=== PATIENT | female | born 1985 | race Caucasian/White ===

== ENCOUNTER 2017-06-26 09:45 | Inpatient (IN) | payer SELFPAY ==
[2017-06-25 11:26] VITALS: BMI 36.4
[2017-06-25 12:29] LABS: Absolute Lymphocyte Count 1.82 X10^3/ul (0.83-4.51); Absolute Neutrophil Count 5.8 X10^3/uL (2.0-7.7); Eosinophil# 0.03 X10^3/uL; Eosinophils% 0.4 % (0-5); Hematocrit 38.3 % (37-47); Hemoglobin 13.2 g/dl (12.0-15.0); Lymphocyte # 1.82 X10^3/ul (4.0); Lymphocyte % 22.6 % (19-41); Mean Corp Hgb Conc 34.5 g/gl (32-36); Mean Corpuscular Hgb 32.5 pg (27.0-32.0); Mean Corpuscular Volume 94.3 fL (81-99); Mean Platelet Vol. 9.7 fl (6.2-12.0); Neutrophil # 5.81 X10^3/uL (2.7-7.7); Neutrophil % 71.9 % (47-70); Platelet Count 170 K/mm3 (150-450); RBC Distribution Width CV 12.8 % (11.6-14.6); RBC Distribution Width SD 43.6 fl (35.1-43.9); Red Blood Count 4.06 M/mm3 (4.2-5.4); White Blood Count 8.1 K/mm3 (4.4-11.0)
[2017-06-25 12:32] LABS: POSITIVE COUNT NO; POSITIVE DIFFERENTIAL NO; POSITIVE MORPHOLOGY NO
[2017-06-25 12:39] LABS: Prothrombin Time (Protime)PT. 13.1 SECONDS (11.7-14.9)
[2017-06-25 12:40] LABS: Partial Thromboplast Time 26.7 Seconds (24.1-36.2)
[2017-06-26] VITALS (18 sets, daily range): BP systolic 107–132; BP diastolic 57–76; PULSE 77–100; RESP 13–25; TEMP 36.4–36.9; O2SAT 95–100
[2017-06-26] MEDS: Lactated Ringers 1,000 ML 999 ML IV (10:10)
[2017-06-26] MEDS: Lactated Ringers 1,000 ML 150 ML IV (11:16)
[2017-06-26] MEDS: Sodium Citrate/Citric Acid 30 ML UDC PO (11:38)
[2017-06-26] MEDS: Oxytocin 30 units/NS 500 ml 30 UNITS/500 ML IV.SOLN 167 UNITS IV (12:23)
--- NOTE | 2017-06-26 12:48 | PCM.OB.CSR ---
- Problem List (1) Previous section Status: Chronic Delivery Classification: Scheduled Final EVA: 07/01/17 Final EVA Source: US <20 weeks Gestational age: 39 Weeks and 2 Days doctor who attended delivery (if requested by OB): Eugene Tello Indications: Two previous deliverys Description of Procedure: Uncomplicated low transverse section. No significant abdominal or pelvic adhesions. Delivery of a live male . Apgars 8/9. Amniotic fluid clear. Placenta appeared normal.Normal uterus, ovaries, and fallopian tubes. Amniotic Membrane Rupture Type: Artificial Amniotic Fluid Description: Clear Placenta Disposition: [facility] Drain: Thompson to straight drain Fluids Replaced: 1500cc Cord Entanglement: None Cord Vessel Description: 3 Vessels Esitmated Blood Loss (ml): 600 Infant Gender: Female (1 minute): 8 (5 minute): 9 Delayed cord clamping: Yes Pre-op Antibiotic Given: Ancef 2 grams IV x1 Pt instructed on risks of surgery: Bleeding, Infection, Injury to surrounding structure(s) including bowel and bladder Complications: None - Admit VTE Documentation VTE Present on Admission: No VTE Mechan Device Prophylaxis: SCD's VTE Pharm Prophylaxis ordered?: No
[2017-06-26] MEDS: Ketorolac 30 MG/ML Syringe IV ×2 (12:54→17:57)
--- NOTE | 2017-06-26 12:57 | DCINST_ITS ---
Discharge Diet: No Restrictions Discharge Activity: Return to Normal Activity, May Not Drive, May not drive while taking narcotic pain medications., May Shower Return to work on:: 08/23/17 May shower in (days): 0 May resume sexual activity in: 4-6 weeks Call your doctor if your incision/area has: Sudden Increased Bleeding, Increased Pain/ Swelling, Increased Redness, Foul Smelling Discharge, Swelling at the incision site Call your doctor if you observe: Fever of 101 or Higher, Inability to urinate, Inability to have a bowel movement, Using more than one pad per hour, Shortness of breath, Chest pain, Calf discomfort, Uncontrolled pain Remove Dressing in (days):: 2 Cleanse incision/area with: Soap & Water Additional Instructions: If you experience any of the following, contact your healthcare provider. * Bleeding that soaks a pad every hour for 2 hours * Fever 100.4 or higher * Unrelieved incision or abdominal pain * Swelling, redness, discharge or bleeding from your incision or episiotomy site * Your incision begins to separate * Problems urinating (including inability to urinate or burning while urinating) . * Visual changes * Severe headache * Flu-like symptoms * Pain or redness in one of both of your breasts * Pain, warmth, tenderness or swelling in your legs, especially the calf area * Frequent nausea and vomiting * Symptoms of depression or anxiety If you experience any of the following, call 911 or go to the nearest Emergency Room. * Chest pain * Problems breathing * Seizure activity * Partial or complete paralysis of a body part, slurred speech, weakness or drooping of the face, or a sudden inability to walk or hold your balance Allergies/Adverse Reactions: Allergies No Known Allergies Allergy (Verified 03/10/13 20:51) Medications to take at Discharge Vits [Prenatabs FA ] 1 tablet PO DAILY 03/10/13 Ibuprofen [Motrin] 800 mg PO TID PRN PRN #30 tab 06/26/17 Oxycodone [Oxyir] 5 - 10 mg PO Q4H PRN PRN 7 Days #28 tab 06/26/17 The following prescriptions were given: Oxycodone [Oxyir] 5 - 10 mg PO Q4H PRN PRN 7 Days #28 tab PRN Reason: Mod-Severe Pain (-02/26) Ibuprofen [Motrin] 800 mg PO TID PRN PRN #30 tab PRN Reason: pain or cramping Follow-Up: Call to make an appointment with your doctor for an incision check in 1-2 weeks. You will also need a 6 week post- follow up appointment. Please Follow Up With: Eugene Tello MD When: one week Primary Care Physician: Pito Flores MD [Primary Care Provider] - Proposed Discharge Date: 06/28/17
--- NOTE | 2017-06-26 12:57 | PCM.OPRPT ---
Problem List (1) Previous section Status: Chronic Report of Operation Date of Procedure: 06/26/17 Pre-Operative Diagnosis: Two previous deliveries Post-Operative Diagnosis: Same Surgery/Procedure Performed:: Repeat low transverse section Description of Surgical Findings:: Normal appearing uterus, ovaries, and fallopian tubes. Amniotic fluid clear. Delivery of live female from vertex presentation. Apgars 8/9. No significant abdominal or pelvic adhesions noted. senior microsoft net developer: Patsy Gillespie Type of Anesthesia:: Spinal Anesthesiologist: Jose G Collins Specimen's removed: none Drains: bateman Estimated Blood Loss (mL): 600 Fluids Replaced: 1500cc Description of Procedure: Kamini was taken to the OR with IV running. She was given two grams of Ancef IV prior to the procedure. Spinal anesthesia was introduced without complication. SHe was then prepped and draped in the supine position with a leftward displacement. A bateman catheter was then placed aseptically. SCDs were in place throughout the case. Anesthesia was checked and found to be adequate. A Pfhanneinsteil incision was then made through the previous scar. The underlying subcutaneous tissue was dissected down to the level of fascia using blunt and sharp dissection. The fascia was then incised in the midline and this incision was extended bilaterally with the Hahn scissors. The upper portion of the fascial defect was then grasped with two Etta clamps, elevated and the rectus muscles dissected off with blunt and sharp dissection. In a similar fashion the rectus muscles were dissected off the lower fascial defect. The rectus muscles were in the midline, the peritoneum identified and entered sharply. Once entered this defect was extended using blunt retraction. A bladder blade was placed. The vesicoutero peritoneum was identified and entered sharply. A bladder flap was then created. The bladder blade was replaced. The lower uterine segment was then incised in a transverse fashion. Once the cavity was entered the uterine defect was extended using blunt lateral and superior tractions. The membranes were then ruptured with clear fluid noted. The baby's head was then delivered atraumatically. The nose and mouth were suctioned. The body was delivered easily. Delayed cord clamping was employed. After cord clamping the baby was handed to the waiting nursing staff for evaluation. The placenta was delivered manually. The uterus was then exteriorized and cleared of all clots and debris. The uterine defect was repaired in two layers with 1-0 Vicryl. The posterior cul de sac and gutters were cleared of all clots and membranes. The uterus was returned to the abdomen. The uterine incision was reinspected and found to be intact. The peritoneum was then repaired with a running stitch of 2-0 Vicryl. The rectus muscles were reapproximated with 0-Vicryl in interrupted sutures. The fascia was closed with a running stitch of #1 stratofix suture. The subcutaneous tissue was repaired with 2-0 vicryl. The skin was closed with a subcuticular stitch of 4-0 Monocryl. Sponge, lap, and needle counts were correct. The patient was taken to the recovery room in stable condition. Grafts/Implants Used: none - Complications none - Admit VTE Documentation VTE Present on Admission: No VTE Mechan Device Prophylaxis: SCD's VTE Pharm Prophylaxis ordered?: No
[2017-06-26] MEDS: Lactated Ringers 1,000 ML 100 ML IV (14:40)
--- NOTE | 2017-06-26 15:20 | NURSING ---
Cherelle Care given, FF at U/-1 .Pt tolerating movement well.
[2017-06-26] MEDS: 0.9% Saline Lock 10 ML Syringe IV (17:57)
[2017-06-26] MEDS: Cefazolin 1 GM/50 ML BAG IV (19:52)
[2017-06-27] VITALS (12 sets, daily range): BP systolic 106–126; BP diastolic 58–68; PULSE 76–106; RESP 16–20; TEMP 36.6–36.9; O2SAT 96–98
[2017-06-27] MEDS: Ketorolac 30 MG/ML Syringe IV ×4 (00:11→17:57)
[2017-06-27] MEDS: Lactated Ringers 1,000 ML 100 ML IV (00:15)
[2017-06-27] MEDS: Cefazolin 1 GM/50 ML BAG IV (03:29)
[2017-06-27 04:31] LABS: Hematocrit 32.4 % (37-47); Hemoglobin 11.2 g/dl (12.0-15.0); Mean Corp Hgb Conc 34.6 g/gl (32-36); Mean Corpuscular Hgb 32.9 pg (27.0-32.0); Mean Corpuscular Volume 95.3 fL (81-99); Mean Platelet Vol. 9.2 fl (6.2-12.0); Platelet Count 151 K/mm3 (150-450); RBC Distribution Width CV 12.6 % (11.6-14.6); RBC Distribution Width SD 42.3 fl (35.1-43.9); White Blood Count 10.2 K/mm3 (4.4-11.0)
[2017-06-27 04:35] LABS: Scan Indicated on CBC? Y/N NO
--- NOTE | 2017-06-27 07:39 | PCM.PN.OB ---
Subjective: Comfortable. No complaints of pain. Bleeding normal POD#1. Tolerating PO. Objective: Afeb VSS urine output adequate. Hgb appropriate for POD#1. - Physical Exam General: Alert, Oriented x3, Cooperative, No apparent distress Lungs: Clear to auscultation, Normal air movement Cardiovascular: Regular rate, Regular Rhythm Abdomen: Soft, Non Tender, Non-Distended, - - Fundus firm nontender. Incision dressing dry. Extremities: No edema, No Calf Tenderness Skin: No rashes Neurological: Neuro grossly intact Psych/Mental Status: Normal Affect Comment: Lochia normal Vital Signs Temp Pulse Resp BP Pulse Ox 98.1 F 106 H 18 111/63 98 06/27/17 03:45 06/27/17 06:00 06/27/17 06:00 06/27/17 03:45 06/27/17 06:00 Oxygen Delivery Method Room Air Weight: 261 lb 7.492 oz Body Mass Index (BMI) 36.4 Intake and Output for Last 24 Hours 02/06/18 02/07/18 02//18 23:59 23:59 23:59 Intake Total 4784 / 4784 1910 / 1910 Output Total 1300 / 1300 1800 / 1800 Balance 3484 / 3484 110 / 110 Laboratory Tests Past 24 Hrs 02//18 04:15 WBC 10.2 RBC 3.40 L Hgb 11.2 L Hct 32.4 L MCV 95.3 MCH 32.9 H MCHC 34.6 RDW 12.6 RDW Differential 42.3 Plt Count 151 MPV 9.2 Assessment/Plan Doing well on POD#1. Continue routine PO care.
--- NOTE | 2017-06-27 09:06 | NURSING ---
did assessment with student and double checked uterus/incision/and lochia. Agree with student's charting.
[2017-06-27] MEDS: Prenatal Vits Tablet 1 TABLET PO (12:28)
[2017-06-27] MEDS: 0.9% Saline Lock 10 ML Syringe IV ×2 (12:31→17:57)
--- NOTE | 2017-06-27 14:54 | NURSING ---
08:30 vitals and assessment from the student Nurse reviewed and after seeing and assessing the patient myself I agree with his clinical findings. Will continue to assess and monitor
[2017-06-28] MEDS: 0.9% Saline Lock 10 ML Syringe IV (00:03)
[2017-06-28] MEDS: Ketorolac 30 MG/ML Syringe IV ×2 (00:05→06:18)
[2017-06-28 03:00] VITALS: BP 121/77; PULSE 92; RESP 18; TEMP 36.6; O2SAT 96
[2017-06-28 08:30] VITALS: BP 124/73; PULSE 95; RESP 18; TEMP 36.3; O2SAT 97
--- NOTE | 2017-06-28 08:53 | PCM.PN.OB ---
Subjective: No complaints. Breast feeding. Bleeding light. Objective: Afeb VSS - Physical Exam General: Alert, Oriented x3, Cooperative, No apparent distress Lungs: Clear to auscultation, Normal air movement Cardiovascular: Regular rate, Regular Rhythm Abdomen: Soft, Non Tender, Non-Distended, - - Fundus nontedner Incision dressing dry Extremities: No edema, No Calf Tenderness Skin: No rashes Neurological: Neuro grossly intact Psych/Mental Status: Normal Affect Vital Signs Temp Pulse Resp BP Pulse Ox 97.8 F 92 18 121/77 H 96 06/28/17 03:00 06/28/17 03:00 06/28/17 03:00 06/28/17 03:00 06/28/17 03:00 Oxygen Delivery Method Room Air Weight: 261 lb 7.492 oz Body Mass Index (BMI) 36.4 Intake and Output for Last 24 Hours 02//18 /01/04 02/02/04 23:59 23:59 23:59 Intake Total 4784 / 4784 3360 / 3360 Output Total 1300 / 1300 4350 / 4350 Balance 3484 / 3484 -990 / -990 Assessment/Plan Doing well on POD#2. Cleared for discharge home today. Home going instructions and warnings given.
--- NOTE | 2017-06-28 08:54 | PCM.DC.SUM ---
Discharge Date and Diagnosis Date of Admission: 06/26/17 Date of Discharge: 06/28/17 - Primary Discharge Diagnosis S/P Repeat C/S - Secondary Discharge Diagnosis Chronic Problems Previous section (Chronic) Hospital Course and Treatment Consultations 06/25/17 11:12 Consult: Anesthesia Routine Comment: Reason For Exam: LABOR Operations: - - Repeat C/S Summary of Care Provided: The patient is a 31 year old F [admitted for scheduled repeat C/S. This was performed without complication with delivery of a live female . Post operative course unremarkable. Discharged home on POD#2.] Discharge Diet: No Restrictions Discharge Activity: Return to Normal Activity, May Not Drive, May not drive while taking narcotic pain medications., May Shower Return to work on:: 08/23/17 May shower in (days): 0 May resume sexual activity in: 4-6 weeks Call your doctor if your incision/area has: Sudden Increased Bleeding, Increased Pain/ Swelling, Increased Redness, Foul Smelling Discharge, Swelling at the incision site Call your doctor if you observe: Fever of 101 or Higher, Inability to urinate, Inability to have a bowel movement, Using more than one pad per hour, Shortness of breath, Chest pain, Calf discomfort, Uncontrolled pain Remove Dressing in (days):: 2 Cleanse incision/area with: Soap & Water Home Medications: Medications to take at Discharge Vits [Prenatabs FA ] 1 tablet PO DAILY 03/10/13 Ibuprofen [Motrin] 800 mg PO TID PRN PRN #30 tab 06/26/17 Oxycodone [Oxyir] 5 - 10 mg PO Q4H PRN PRN 7 Days #28 tab 06/26/17 Following Prescrptions Were Given to Patient: Oxycodone [Oxyir] 5 - 10 mg PO Q4H PRN PRN 7 Days #28 tab PRN Reason: Mod-Severe Pain (4-10/10) Ibuprofen [Motrin] 800 mg PO TID PRN PRN #30 tab PRN Reason: pain or cramping Primary Care Physician: Pito Flores MD [Primary Care Provider] - Please Follow Up With: Eugene Tello MD When: one week Disposition: Home Minutes spent on discharge:: 15 Patient Condition:: Good Meaningful Use Info Meaningful Use Diagnoses (Choose all that apply): None applicable
== END 2017-06-28 11:35 | disposition home or self-care (01) | DRG 766 ==
PROVIDERS: Admitting Provider Obstetrics & Gynecology; Family Provider Family Medicine; PCP Family Medicine; Visit Provider Obstetrics & Gynecology
DX: O34.211 Maternal care for low transverse scar from previous cesarean delivery (principal); Z37.0 Single live birth; Z3A.39 39 weeks gestation of pregnancy
CPT/HCPCS: 85025; 85027; 85610; 85730; 86850; 86900; 93460; 99218; J7120; A4216; G0378; J2405